=== PATIENT | male | born 1980 | race Hispanic/Latino ===

== ENCOUNTER 2024-09-17 13:51 | Emergency (ER) | payer OTHER ==
[~2024-09-17] VITALS: Ht 180.3 cm; Wt 64.4 kg
--- NOTE | 2024-09-17 14:00 | ERN ---
ED Note History of Present Illness Stated Complaint: CP, ANXIETY Chief Complaint: Chest Pain Time Seen by MD: 13:56 Dictation: PATIENT IS A 43-YEAR-OLD MALE COMING IN TODAY WITH DIFFUSE ANTERIOR CHEST PAIN THAT DOES NOT RADIATE WITH ANXIETY ONSET WAS YESTERDAY. NO JAW PAIN NO ARM PAIN NO BACK PAIN NO NAUSEA VOMITING. STATES HE JUST LEFT HIS PRIMARY CARE DOCTOR IN [facility] AFTER LABS AND AN EKG, WAS GIVEN A SHOT OF ATIVAN FOR ANXIETY. HE STATES SHE TOLD ME THAT IF THE PAIN GOT WORSE TO GO TO THE NEAREST EMERGENCY ROOM SO THEY DROVE TO [facility] COME TO [facility] ON-CALL. Allergies: Coded Allergies: No Known Drug Allergies (Unverified Allergy, Unknown, 09/17/24) Past Medical History RN Note Reviewed/Agreed w/PFSH: Yes Review of System Dictation CONSTITUTIONAL: NEGATIVE EXCEPT FOR HPI HEAD/FACE: NEGATIVE EXCEPT FOR HPI EENT: NEGATIVE EXCEPT FOR HPI RESPIRATORY: NEGATIVE EXCEPT FOR HPI DIFFUSE CHEST GASTROINTESTINAL/ABDOMINAL: NEGATIVE EXCEPT FOR HPI GENITOURINARY: NEGATIVE EXCEPT FOR HPI MUSCULOSKELETAL: NEGATIVE EXCEPT FOR HPI INTEGUMENTARY: NEGATIVE EXCEPT FOR HPI NEUROLOGICAL/PSYCH: NEGATIVE EXCEPT FOR HPI ANXIETY HEMATOLOGIC/LYMPHATIC: NEGATIVE EXCEPT FOR HPI ALL SYSTEMS NEGATIVE, EXCEPT NOTED ABOVE. 13 POINT REVIEW OF SYSTEMS ASSESSED AND ALL NEGATIVE EXCEPT FOR ABOVE. Initial Vital Sign VS Vital Signs Date Time Temp Pulse Resp B/P (MAP) Pulse Ox O2 Delivery O2 Flow Rate FiO2 09/17/24 13:55 99.0 132 20 132/92 98 Room Air 0 Physical Exam Dictation VITAL SIGNS REVIEWED GENERAL APPEARANCE: ALERT, ORIENTED X 3, NO ACUTE DISTRESS, WELL DEVELOPED, NOURISHED. ANXIOUS HEAD AND FACE: NON-TRAUMATIC. EYES: PERRL, PINK CONJUNCTIVAS, EYELID NO TRAUMA, ANTERIOR CHAMBER WITH ARCUS SENILIS. EARS: PINNAS INTACT AND NO SIGNS OF TRAUMA OR ERYTHEMA EAR CANALS CLEAR AND NO DISCHARGE TM NO ERYTHEMA NOSE: NO DISCHARGE, NO BLEEDING. OROPHARYNX: MOUTH NORMAL, TONGUE PINK, PHARYNX CLEAR,NO ERYTHEMA, TONSILS NO EXUDATES, NO ABSCESSES NOTED, MUCOUS MEMBRANE MOIST NECK: SUPPLE, NON-TENDER, NO THYROMEGALY, NO MASSES, NO JVD, NO BRUITS BREAST:DEFERRED CHEST:NO TENDERNESS, NO CREPITUS, NO PARADOXICAL MOVEMENT, NO RETRACTIONS LUNGS:CLEAR, WELL-VENTILATED, SYMMETRIC, NO RALES, NO WHEEZING, NO RHONCHI, NO STRIDOR, GOOD BREATH SOUNDS BILATERALLY HEART: REGULAR RATE, REGULAR RHYTHM, NO MURMUR, NO GALLOPS VASCULAR: NO PERIPHERAL EDEMA, ABDOMEN: SOFT, POSITIVE BOWEL SOUNDS, NONDISTENDED, NO GUARDING, NONTENDER, NO REBOUND, NO MASSES NO HEPATOMEGALY, NO SPLENOMEGALY, NO ESPINOZA'S SIGN, NO HERNIAS. RECTAL: DEFERRED GENITAL: DEFERRED NEUROLOGICAL: NORMAL SPEECH, MOTOR FUNCTION INTACT, SENSORY FUNCTION INTACT MUSCULOSKELETAL: NECK NONTENDER, FULL RANGE OF MOTION, BACK NONTENDER, FULL RANGE OF MOTION, EXTREMITIES: NONTENDER, FULL RANGE OF MOTION SKIN: COLOR PINK, DRY, NO TURGOR, NO RASH, NO LACERATIONS, NO ABRASIONS, NO CONTUSIONS. LYMPHATIC: DEFERRED Results (Laboratory/Radiology) Laboratory/Radiology Laboratory Tests Test 09/17/24 14:06 White Blood Count 11.3 K/uL (4.8-10.8) H Red Blood Count 5.61 MIL/uL (4.50-6.20) Hemoglobin 17.1 g/dL (14.0-18.0) Hematocrit 49.2 % (42-54) Mean Corpuscular Volume 87.7 fL (79-99) Mean Corpuscular Hemoglobin 30.5 pg (27.0-33.0) Mean Corpuscular Hemoglobin Concent 34.8 g/dL (32.0-36.0) Red Cell Distribution Width 12.0 % (11.0-15.5) Platelet Count 322 K/uL (130-400) Mean Platelet Volume 9.6 fL (7.5-10.5) Immature Granulocyte % (Auto) 0.4 % (0-1) Neutrophils (%) (Auto) 88.5 % (40.0-77.0) H Lymphocytes (%) (Auto) 8.6 % (21.0-51.0) L Monocytes (%) (Auto) 2.2 % (3.0-13.0) L Eosinophils (%) (Auto) 0.0 % (0.0-8.0) Basophils (%) (Auto) 0.3 % (0.0-5.0) Neutrophils # (Auto) 10.0 K/uL (1.8-7.7) H Lymphocytes # (Auto) 1.0 K/uL (1.0-4.8) Monocytes # (Auto) 0.3 K/uL (0.1-1.0) Eosinophils # (Auto) 0.00 K/uL (0.00-0.70) Basophils # (Auto) 0.03 K/uL (0.00-0.20) Absolute Immature Granulocyte (auto 0.04 K/uL (0-1) Nucleated Red Blood Cells 0.0 % (0.0-0.19) Sodium Level 142 mmol/L (136-145) Potassium Level 3.7 mmol/L (3.5-5.1) Chloride Level 102 mmol/L (101-111) Carbon Dioxide Level 26 mmol/L (21-32) Blood Urea Nitrogen 12 mg/dL (7-18) Creatinine 0.8 mg/dL (0.5-1.3) Glomerular Filtration Rate Calc 112 mL/min (>90) Random Glucose 121 mg/dL (70-105) H Total Calcium 9.9 mg/dL (8.5-10.1) Troponin I High Sensitivity < 4 ng/L (4-75) L Labs Reviewed?: Yes EKG Comment: EKG SINUS TACHYCARDIA/HEART RATE 123/AXIS NORMAL ED Course ED Course Orders Procedure Category Date Status Time Cbc With Differential LAB 09/17/24 In Process 13:58 12 Lead Ekg Tracing- EKG 09/17/24 Complete Technical 13:58 Troponin I High LAB 09/17/24 Complete Sensitivity 13:58 Basic Metabolic Panel LAB 09/17/24 Complete 13:58 Vital Signs Date Time Temp Pulse Resp B/P (MAP) Pulse Ox O2 Delivery O2 Flow Rate FiO2 09/17/24 13:55 99.0 132 20 132/92 98 Room Air 0 HEART Score Response (Comments) Value History: Low suspicion (0) 0 EKG: Normal 0 Age: < 45yrs (0) 0 Risk Factors: No known risk factors (0) 0 Initial Troponin: Normal limit (0) 0 Total 0 Medical Decision Making MDM MEDICAL DECISION-MAKING BASIC CARDIAC WORKUP WITH THE EKG. PATIENT IN SINUS TACHYCARDIA HAS A HISTORY OF PALPITATIONS AND ANXIETY. WE WILL DISCHARGE PATIENT HOME WITH METOPROLOL HAVE PATIENT FOLLOW UP WITH HIS PRIMARY CARE DOCTOR TOMORROW Procedure Procedure Dictation: MEDICAL DECISION-MAKING BASIC CARDIAC WORKUP WITH THE EKG. PATIENT IN SINUS TACHYCARDIA HAS A HISTORY OF PALPITATIONS AND ANXIETY. WE WILL DISCHARGE PATIENT HOME WITH METOPROLOL HAVE PATIENT FOLLOW UP WITH HIS PRIMARY CARE DOCTOR TOMORROW DX & DISP Disposition: Discharge Departure Impression: Primary Impression: Sinus tachycardia by electrocardiogram Additional Impression: Anxiety Condition: Stable Scripts Metoprolol Tartrate (Metoprolol Tartrate) 25 Mg Tablet 1 TAB PO BID for 30 Days, #60 TAB 0 Refills Prov: AMANDA REYNOLDS NP 09/17/24 Additional Instructions: FOLLOW-UP WITH PRIMARY CARE PROVIDER IN 1 TO 2 DAYS. TAKE MEDICATIONS DIRECTED HERE IN THE EMERGENCY ROOM. OKAY TO CONTINUE HOME MEDICATIONS UNLESS OTHERWISE DISCUSSED DURING YOUR VISIT IN THE EMERGENCY ROOM TODAY. RETURN TO YOUR NEAREST EMERGENCY ROOM IF SYMPTOMS WORSEN OR IF THERE IS NO IMPROVEMENT. CALL 911 IF YOU NEED IMMEDIATE ASSISTANCE. TAKE TYLENOL OR MOTRIN [id number] NEEDED AND IF NO CONTRAINDICATIONS ARE PRESENT. INCREASE ORAL HYDRATION. A WOUND CULTURE OR URINE CULTURE WAS ORDERED HERE IN THE EMERGENCY ROOM DEPARTMENT PLEASE FOLLOW-UP WITH PRIMARY CARE PROVIDER AND ADVISE THEM TO GET REPEAT PORTS FROM OUR FACILITY. IF YOU HAD ANY CHARAN WRAP/SPLINTS THAT WERE APPLIED HERE, PLEASE DO NOT REMOVE THEM UNTIL YOU SEE YOUR PRIMARY CARE OR SPECIALTY. TAKE METOPROLOL DIRECTED. FOLLOW UP WITH YOUR PRIMARY CARE DOCTOR TOMORROW REFER REFERRAL TO CARDIOLOGY. Time of Disposition: 15:16 I have reviewed the case, and I agree with, Diagnosis and Plan AMANDA REYNOLDS NP Sep 17, 2024 14:00
[2024-09-17 14:17] LABS: IMMATURE GRANULOCYTE ABSOLUTE 0.04 K/uL (0-1); NUCLEATED RED BLOOD CELLS 0.0 % (0.0-0.19); PLATELET COUNT (AUTO) 322 K/uL (130-400); RED BLOOD CELL COUNT(AUTO) 5.61 MIL/uL (4.50-6.20); RED CELL DISTRIBUTION WIDTH 12.0 % (11.0-15.5); WHITE BLOOD COUNT (AUTO) 11.3 K/uL (4.8-10.8)
[2024-09-17 14:24] LABS: CREATININE 0.8 mg/dL (0.5-1.3); GLOMERULAR FILTR. RATE CALC 112.0 mL/min (>90); GLUCOSE,RANDOM 121.0 mg/dL (70-105); SODIUM SERUM 142.0 mmol/L (136-145); UREA NITROGEN, BLOOD 12.0 mg/dL (7-18)
--- NOTE | 2024-09-17 15:04 | EKG ---
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
[2024-09-17] MEDS ORDERED: METO25TA6 PO (15:17)
[2024-09-17 15:52] VITALS: BP 128/88; PULSE 94; RESP 20; TEMP 98.8; O2SAT 98
== END 2024-09-17 15:53 | disposition home or self-care (01) ==
LOC: EDH 13:51
DX: R00.0 Tachycardia, unspecified (principal); F41.9 Anxiety disorder, unspecified
CPT/HCPCS: 36415; 80048; 84484; 85025; 93005; 99284